=== PATIENT | male | born 1985 | race Caucasian/White ===

== ENCOUNTER 2018-08-22 15:50 | Emergency (ER) | payer BC ==
[~2018-08-22 15:50] MED LIST: KET10 PO
[2018-08-22 15:55] VITALS: BP 116/81
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
[2018-08-22] MEDS ORDERED: NS(*) 0.9% 1000 ML BAG 1,000 ML IV ONE (16:08)
[2018-08-22] MEDS ORDERED: IOPAMIDOL 76% 75 ML INFUS BTL 75 ML ONE (16:19)
[2018-08-22 16:44] LABS: PLATELET COUNT, AUTOMATED 166 K/uL (150-450)
--- NOTE | 2018-08-22 17:35 | RADIOLOGY IMAGING REPORT ---
FACILITY: [facility] PATIENT NAME: Ricky Cowart : 1985 MR: [id number] V: [id number] EXAM DATE: ORDERING PHYSICIAN: ARASELI MCGOVERN TECHNOLOGIST: Location: [facility] Patient: Ricky Cowart : 1985 Visit/Account:[id number] Date of Sevice: 08/22/2018 ABDOMEN/PELVIS WITH CONTRAST HISTORY: RLQ abdominal pain TECHNIQUE: Axial images were obtained through the abdomen and pelvis with intravenous contrast . One of the following dose optimization techniques was utilized in the performance of this exam: automate d exposure control; adjustment of the mA and/or kv according to patient size; or use of iterative rec onstruction technique. Specific details can be referenced in the facility's radiology CT exam operati onal policy. CONTRAST: 75 cc of Isovue-370 COMPARISON: None. FINDINGS: Visualized lung bases: Negative. Hepatobiliary: Periportal tracking consistent with hydration. Spleen: Negative. Adrenals: Negative. Pancreas: Negative. Kidneys/ureters/bladder: Negative. Bowel/peritoneum/mesentery: Marked thickening of the cecum with small amount of adjacent fluid. Ther e may be other segments of mildly thickened colon. No bowel obstruction or free air. Multiple mildly enlarged right lower quadrant lymph nodes. Vessels: Negative. Lymph nodes: See above Pelvic genitourinary: Negative. Bones/body wall: Negative. Other findings: None significant IMPRESSION: 1. Findings most consistent with infectious/inflammatory colitis especially involving the cecum. Smal l amount of free fluid within the right lower quadrant. Several mildly enlarged right lower quadrant lymph nodes, likely reactive. Report Dictated By: Nelson Irvin MD at 08/22/2018 5:15 PM Report E-Signed By: Nelson Irvin MD at 08/22/2018 5:31 PM [id number]
[2018-08-22] MEDS ORDERED: AMOX-559 PO (17:41)
== END 2018-08-22 17:52 | disposition home or self-care (01) ==
LOC: ER 15:58
DX: K52.9 Noninfective gastroenteritis and colitis, unspecified (principal)
CPT/HCPCS: 74177; 81001; 82150; 83690; 85025; 86140; 96360; 99284; J7030; Q9967; 82040; 82247; 82310; 82374; 82435; 82565; 82947; 84075; 84132; 84155; 84295; 84450; 84460; 84520